=== PATIENT | male | born 1940 | race Caucasian/White ===

== ENCOUNTER 2020-11-18 17:12 | Inpatient (IN) ==
[2020-11-18] MEDS ORDERED: Naloxone 0.4 MG/ML INJ IVP PRN ×2 (23:05→23:13)
[2020-11-18] MEDS ORDERED: Acetaminophen 325 MG TABLET PO PRN (23:13)
[2020-11-19] MEDS: Ondansetron ODT 4 MG TAB.RAPDIS SL PRN ×2 (01:12→06:52)
[2020-11-19] MEDS ORDERED: *HR* FentaNYL PATCH 25 MCG PATCH TD SCH (01:30)
[2020-11-19] MEDS ORDERED: D5% in Water 1,000 ML IVC PRN (01:32)
[2020-11-19] MEDS ORDERED: Dextrose Gel 15 GM/37.5 ML TUBE PO PRN ×2 (01:32)
[2020-11-19] MEDS ORDERED: Ipratropium/Albuterol Neb 3 ML IH PRN (01:32)
[2020-11-19] MEDS ORDERED: *HR* Dextrose 50 % in Water (Vial) 50 ML VIAL IVP PRN (01:32)
[2020-11-19] MEDS: *HR* OxyCODONE Immed Rel 15 MG TABLET PO PRN ×4 (01:53→21:30)
[2020-11-19] MEDS: Ondansetron ODT 4 MG TAB.RAPDIS PO SCH ×5 (01:54→21:30)
[2020-11-19] MEDS: Gabapentin 400 MG CAPSULE PO SCH ×4 (02:18→21:30)
[2020-11-19 02:24] LABS: Basophils % 0.3 %; Eosinophils % 0.3 %; Hematocrit 33.9 % (37.5-50.1); Hemoglobin 10.6 g/dL (12.9-16.9); Immature Granulocytes % 0.7 % (0-4); Lymphocytes # 1.4 K/mcL (0.6-4.6); Lymphocytes % 12.6 %; Mean Corpuscular HGB Conc 31.3 g/dL (31.6-35.5); Mean Corpuscular Hemoglobin 27.7 pg (28.0-33.3); Mean Corpuscular Volume 88.7 fL (83.0-100.0); Mean Platelet Volume 9.5 fL (9.4-12.4); Monocytes # 1.4 K/mcL (0.0-1.3); Monocytes % 12.2 %; Neutrophils # 8.2 K/mcL (1.6-8.9); Platelet Count 172 K/mcL (140-400); Red Blood Count 3.82 M/mcL (4.19-5.50); Red Cell Distribution Width 15.4 % (11.5-14.5); Segmented Neutrophils % 73.9 %
[2020-11-19 02:33] LABS: Prothrombin Time 22.3 Seconds (9.4-12.1)
[2020-11-19 03:22] LABS: Bilirubin,Urine Negative (Negative); Blood,Urine Large (Negative); Clarity,Urine Turbid (Clear); Color,Urine Light-Orange (Yellow); Glucose,Urine (UA) Normal (Normal); Hyaline Casts,Urine Few per lpf (None Seen); Ketones,Urine Trace mg/dL (Negative); Leukocyte Esterase,Urine Negative (Negative); Mucus,Urine Few per lpf (None-Few); Nitrite,Urine Negative (Negative); Protein,Urine >=300 mg/dL (Neg-Trace); RBC,Urine TNTC per hpf (0-3); Specific Gravity,Urine 1.024 (1.010-1.025); Squamous Epithelial Cell,Urine Few per hpf (None-Few); Urobilinogen,Urine Normal (Normal); WBC,Urine 15-30 per hpf (0-3)
[2020-11-19 04:29] LABS: Estimated Average Glucose 131 mg/dl; Hemoglobin A1C 6.2 %
[2020-11-19] MEDS ORDERED: *HR* Heparin 5,000 UNIT/ML VIAL IVP ONE (08:06)
[2020-11-19] MEDS ORDERED: *HR* Heparin 5,000 UNIT/ML VIAL IVP PRN ×2 (08:06)
[2020-11-19] MEDS ORDERED: Heparin 25,000UNIT/250ML 1/2NS 25,000 UNIT/250 ML IV.SOLN IVC SCH ×2 (08:15→15:45)
[2020-11-19 08:41] LABS: Hematocrit 35.5 % (37.5-50.1); Hemoglobin 11.1 g/dL (12.9-16.9); Heparin anti-factor XA UFH 0.16 IU/mL (0.30-0.70); INR 1.6; Mean Corpuscular HGB Conc 31.3 g/dL (31.6-35.5); Mean Corpuscular Hemoglobin 28.1 pg (28.0-33.3); Mean Corpuscular Volume 89.9 fL (83.0-100.0); Mean Platelet Volume 9.4 fL (9.4-12.4); Platelet Count 173 K/mcL (140-400); Prothrombin Time 18.2 Seconds (9.4-12.1); Red Blood Count 3.95 M/mcL (4.19-5.50); Red Cell Distribution Width 15.3 % (11.5-14.5)
[2020-11-19] MEDS: Pantoprazole 40 MG VIAL IVP SCH (08:45)
[2020-11-19] MEDS: Loratadine 10 MG TABLET PO SCH (08:46)
[2020-11-19] MEDS: Insulin LISPRO 300 UNITS/3 ML VIAL SUBQ SCH ×3 (08:48→17:40)
[2020-11-19] MEDS ORDERED: Metoprolol XL (24 HR) Succ 25 MG TAB.ER.24H PO SCH (09:00)
[2020-11-19] MEDS: levoFLOXacin 750 MG TABLET PO SCH (09:03)
[2020-11-19] MEDS ORDERED: Furosemide 40 MG/4 ML VIAL IVP ONE (11:37)
[2020-11-19] MEDS: Aspirin Enteric Coated 81 MG Tablet PO SCH (11:54)
[2020-11-19] MEDS ORDERED: Perflutren Lipid Microsphere 1.3 ML in 0.9 % Sodium Chloride 8.7 ML IVP PRN (12:38)
[2020-11-19] MEDS ORDERED: Gabapentin 400 MG CAPSULE PO SCH (15:00)
[2020-11-19] MEDS ORDERED: Ringers Solution, Lactated 1,000 ML IVC ONE (15:36)
[2020-11-19] MEDS ORDERED: Furosemide 20 MG/2 ML VIAL IVP ONE (15:39)
[2020-11-19] MEDS ORDERED: Ringers Solution, Lactated 1,000 ML ONE (15:44)
[2020-11-19] MEDS ORDERED: 0.9 % Sodium Chloride 1,000 ML IVC ONE (16:13)
[2020-11-19] MEDS ORDERED: 0.9 % Sodium Chloride 1,000 ML ONE (16:14)
[2020-11-19 16:28] LABS: Hematocrit 34.9 % (37.5-50.1); Hemoglobin 11.2 g/dL (12.9-16.9)
[2020-11-19] MEDS: Primidone 50 MG TABLET PO SCH (21:30)
[2020-11-19] MEDS: Metoprolol XL (24 HR) Succ 25 MG TAB.ER.24H PO SCH (21:30)
[2020-11-20] MEDS: *HR* OxyCODONE Immed Rel 15 MG TABLET PO PRN ×4 (01:55→21:16)
[2020-11-20 05:50] LABS: BUN/Creatinine Ratio 25 (6-26); Blood Urea Nitrogen 31 mg/dL (8-23); Calcium 8.4 mg/dL (8.6-10.3); Carbon Dioxide 25 mEq/L (23-29); Chloride 106 mEq/L (98-107); Glucose 127 mg/dL (70-105); Osmolality,Calculated 300 (280-300); Sodium 141 mEq/L (136-145); eGFR For African Americans > 60 (> 60); eGFR For Non-African Americans 56 (> 60)
[2020-11-20] MEDS: lisinopriL 5 MG TABLET PO SCH (08:47)
[2020-11-20] MEDS: Primidone 50 MG TABLET PO SCH ×2 (08:48→21:17)
[2020-11-20] MEDS: Famotidine 20 MG TABLET PO SCH (08:48)
[2020-11-20] MEDS: Aspirin Enteric Coated 81 MG Tablet PO SCH (08:48)
[2020-11-20] MEDS: Metoprolol XL (24 HR) Succ 25 MG TAB.ER.24H PO SCH ×2 (08:48→21:15)
[2020-11-20] MEDS: Ondansetron ODT 4 MG TAB.RAPDIS PO SCH ×4 (08:49→21:16)
[2020-11-20] MEDS: levoFLOXacin 750 MG TABLET PO SCH (08:49)
[2020-11-20] MEDS: Loratadine 10 MG TABLET PO SCH (08:49)
[2020-11-20] MEDS: Gabapentin 400 MG CAPSULE PO SCH ×3 (08:49→21:15)
[2020-11-20] MEDS: Pantoprazole 40 MG VIAL IVP SCH (08:54)
[2020-11-20] MEDS: Insulin LISPRO 300 UNITS/3 ML VIAL SUBQ SCH ×3 (08:58→16:50)
[2020-11-20] MEDS ORDERED: ISOVUE-370 200 ML INFUS..BTL ONE ×2 (09:30→10:37)
[2020-11-20] MEDS ORDERED: 0.9 % Sodium Chloride 2,000 ML ONE (09:30)
[2020-11-20] MEDS ORDERED: Heparin 1,000 UNITS/500 mL 500 ML ONE (09:30)
[2020-11-20] MEDS ORDERED: Nitroglycerin 1,000 MCG/10 ML VIAL IV ONE (09:30)
[2020-11-20] MEDS ORDERED: *HR* Heparin 10,000 UNIT/10 ML VIAL ONE (09:30)
[2020-11-20] MEDS ORDERED: *HR* Midazolam HCl 2 MG/2 ML VIAL ONE (09:40)
[2020-11-20] MEDS ORDERED: *HR* FentaNYL (PF) 100 MCG/2 ML VIAL ONE (09:40)
[2020-11-20 09:42] LABS: Basophils % 0.4 %; Eosinophils # 0.2 K/mcL (0.0-0.6); Hematocrit 33.8 % (37.5-50.1); Hemoglobin 10.3 g/dL (12.9-16.9); Immature Granulocytes % 0.7 % (0-4); Lymphocytes # 1.8 K/mcL (0.6-4.6); Lymphocytes % 18.3 %; Mean Corpuscular HGB Conc 30.5 g/dL (31.6-35.5); Mean Corpuscular Hemoglobin 27.8 pg (28.0-33.3); Mean Corpuscular Volume 91.1 fL (83.0-100.0); Mean Platelet Volume 9.5 fL (9.4-12.4); Monocytes # 1.3 K/mcL (0.0-1.3); Monocytes % 13.1 %; Neutrophils # 6.5 K/mcL (1.6-8.9); Platelet Count 161 K/mcL (140-400); Red Blood Count 3.71 M/mcL (4.19-5.50); Red Cell Distribution Width 15.5 % (11.5-14.5); Segmented Neutrophils % 65.5 %; White Blood Count 9.9 K/mcL (4.3-11.1)
[2020-11-20] MEDS ORDERED: Tirofiban 12.5 MG/250ML 12.5 MG/250 ML BAG ONE (10:27)
[2020-11-20] MEDS ORDERED: Furosemide 40 MG/4 ML VIAL IVP ONE (11:00)
[2020-11-20] MEDS ORDERED: Tirofiban 12.5 MG/250ML 12.5 MG/250 ML BAG IVC SCH (11:00)
[2020-11-20 12:34] LABS: Alanine Aminotransferase 8 Units/L (7-52); Albumin 3.4 g/dL (3.5-5.7); Albumin/Globulin Ratio 1.5 (1.1-2.2); Alkaline Phosphatase 58 Units/L (34-104); Aspartate Amino Transferase 11 Units/L (13-39); Bilirubin,Direct 0.1 mg/dL (0.0-0.2); Bilirubin,Indirect 0.3 mg/dL (0.0-1.0); Bilirubin,Total 0.4 mg/dL (0.3-1.0); Chol/HDL Ratio 3.4 (0-4.9); Cholesterol 92 mg/dL (< 200); Globulin 2.2 g/dL (2.4-3.5); HDL Cholesterol 27 mg/dL (40-59); LDL Cholesterol,Calculated 45 mg/dL (< 100); Magnesium 1.5 mg/dL (1.6-2.6); Phosphorous 3.2 mg/dL (2.7-4.5); Total Protein 5.6 g/dL (6.4-8.9); Triglycerides 100 mg/dL (< 150)
[2020-11-20] MEDS: Spironolactone 12.5 MG TABLET PO SCH (16:49)
[2020-11-20] MEDS ORDERED: *HR* Rivaroxaban 10 MG TABLET PO SCH (17:00)
[2020-11-21] MEDS: *HR* OxyCODONE Immed Rel 15 MG TABLET PO PRN ×3 (02:09→12:29)
[2020-11-21 05:09] LABS: Basophils % 0.4 %; Eosinophils # 0.3 K/mcL (0.0-0.6); Eosinophils % 2.4 %; Hematocrit 32.7 % (37.5-50.1); Hemoglobin 10.3 g/dL (12.9-16.9); Immature Granulocytes % 0.7 % (0-4); Lymphocytes # 1.5 K/mcL (0.6-4.6); Mean Corpuscular HGB Conc 31.5 g/dL (31.6-35.5); Mean Corpuscular Hemoglobin 28.5 pg (28.0-33.3); Mean Corpuscular Volume 90.3 fL (83.0-100.0); Mean Platelet Volume 9.5 fL (9.4-12.4); Monocytes # 1.5 K/mcL (0.0-1.3); Monocytes % 14.3 %; Neutrophils # 6.9 K/mcL (1.6-8.9); Platelet Count 187 K/mcL (140-400); Red Blood Count 3.62 M/mcL (4.19-5.50); Red Cell Distribution Width 15.7 % (11.5-14.5); Segmented Neutrophils % 67.2 %; White Blood Count 10.2 K/mcL (4.3-11.1)
[2020-11-21 05:29] LABS: Calcium 8.4 mg/dL (8.6-10.3); Potassium 3.9 mEq/L (3.5-5.1)
[2020-11-21] MEDS: Insulin LISPRO 300 UNITS/3 ML VIAL SUBQ SCH ×2 (08:07→12:29)
[2020-11-21] MEDS: levoFLOXacin 750 MG TABLET PO SCH (08:08)
[2020-11-21] MEDS: Pantoprazole 40 MG VIAL IVP SCH (08:08)
[2020-11-21] MEDS: Famotidine 20 MG TABLET PO SCH (08:08)
[2020-11-21] MEDS: lisinopriL 5 MG TABLET PO SCH (08:09)
[2020-11-21] MEDS: Spironolactone 12.5 MG TABLET PO SCH (08:09)
[2020-11-21] MEDS: Primidone 50 MG TABLET PO SCH (08:09)
[2020-11-21] MEDS: Loratadine 10 MG TABLET PO SCH (08:09)
[2020-11-21] MEDS: Aspirin Enteric Coated 81 MG Tablet PO SCH (08:11)
[2020-11-21] MEDS: Gabapentin 400 MG CAPSULE PO SCH (08:11)
[2020-11-21] MEDS: Metoprolol XL (24 HR) Succ 25 MG TAB.ER.24H PO SCH (08:12)
[2020-11-21] MEDS: Ondansetron ODT 4 MG TAB.RAPDIS PO SCH ×2 (08:45→12:29)
[2020-11-21 10:50] VITALS: BP 124/68
[2020-11-21] MEDS ORDERED: Furosemide 40 MG TABLET PO PRN (10:54)
[2020-11-21 13:36] LABS: Calcium 8.3 mg/dL (8.6-10.3); Potassium 3.9 mEq/L (3.5-5.1)
== END 2020-11-21 14:21 | disposition home or self-care (01) | DRG 246 ==
LOC: 3BNU → SUATTDRO 22:26 → CDU 22:42 → SUATTDRO 11-19 13:06
PROVIDERS: ADMIT Internal Medicine; ATTEND Internal Medicine

== ENCOUNTER 2021-05-30 13:29 | Observation (INO) ==
[2021-05-30] MEDS ORDERED: methylPREDNISolone 125 MG/2 ML VIAL IVP ONE (14:21)
[2021-05-30] MEDS ORDERED: Ipratropium/Albuterol Neb 3 ML IH ONE (14:22)
[2021-05-30 15:46] LABS: Basophils # 0.1 K/mcL (0.0-0.2); Basophils % 0.5 %; Eosinophils # 0.1 K/mcL (0.0-0.6); Eosinophils % 1.3 %; Hematocrit 38.1 % (37.5-50.1); Hemoglobin 11.6 g/dL (12.9-16.9); Immature Granulocytes % 0.4 % (0-4); Lymphocytes # 2.5 K/mcL (0.6-4.6); Lymphocytes % 24.6 %; Mean Corpuscular HGB Conc 30.4 g/dL (31.6-35.5); Mean Corpuscular Hemoglobin 27.6 pg (28.0-33.3); Mean Corpuscular Volume 90.5 fL (83.0-100.0); Monocytes # 0.9 K/mcL (0.0-1.3); Monocytes % 8.6 %; Neutrophils # 6.6 K/mcL (1.6-8.9); Platelet Count 175 K/mcL (140-400); Red Blood Count 4.21 M/mcL (4.19-5.50); Red Cell Distribution Width 16.6 % (11.5-14.5); Segmented Neutrophils % 64.6 %; White Blood Count 10.2 K/mcL (4.3-11.1)
[2021-05-30 16:10] LABS: Alanine Aminotransferase 33 Units/L (7-52); Albumin 3.7 g/dL (3.5-5.7); Albumin/Globulin Ratio 1.5 (1.1-2.2); Alkaline Phosphatase 84 Units/L (34-104); Aspartate Amino Transferase 29 Units/L (13-39); BUN/Creatinine Ratio 16 (6-26); Bilirubin,Direct 0.1 mg/dL (0.0-0.2); Bilirubin,Indirect 0.2 mg/dL (0.0-1.0); Bilirubin,Total 0.3 mg/dL (0.3-1.0); Blood Urea Nitrogen 24 mg/dL (8-23); Calcium 8.8 mg/dL (8.6-10.3); Carbon Dioxide 26 mEq/L (23-29); Chloride 110 mEq/L (98-107); Creatine Kinase 68 Units/L (30-223); Globulin 2.4 g/dL (2.4-3.5); Glucose 109 mg/dL (70-105); Osmolality,Calculated 299 (280-300); Potassium 5.3 mEq/L (3.5-5.1); Sodium 142 mEq/L (136-145); Total Protein 6.1 g/dL (6.4-8.9); Troponin I < 0.03 ng/mL (< 0.04); eGFR For African Americans 55 (> 60); eGFR For Non-African Americans 46 (> 60)
[2021-05-30 16:14] LABS: Bilirubin,Urine Negative (Negative); Blood,Urine Trace (Negative); Clarity,Urine Clear (Clear); Color,Urine Yellow (Yellow); Glucose,Urine (UA) >=1000 mg/dL (Normal); Hyaline Casts,Urine Few per lpf (None Seen); Ketones,Urine Negative (Negative); Leukocyte Esterase,Urine Small (Negative); Mucus,Urine Few per lpf (None-Few); Nitrite,Urine Negative (Negative); PH,Urine 5.5 pH Units (5.0-8.0); Protein,Urine 30 mg/dL (Neg-Trace); RBC,Urine 0-3 per hpf (0-3); Specific Gravity,Urine > 1.030 (1.010-1.025); Squamous Epithelial Cell,Urine Few per hpf (None-Few); Urobilinogen,Urine Normal (Normal)
[2021-05-30] MEDS: Nitroglycerin 0.4 MG TAB.SUBL SL SCH ×2 (19:12→21:13)
[2021-05-30] MEDS ORDERED: *HR* FentaNYL (PF) 100 MCG/2 ML VIAL IVP ONE (19:31)
[2021-05-30] MEDS ORDERED: Calcium Gluconate 1gm/50mL 1 GM/50 ML BAG IVPB PRN (20:01)
[2021-05-30] MEDS ORDERED: Acetaminophen 325 MG TABLET PO PRN (20:32)
[2021-05-30] MEDS ORDERED: Dextrose Gel 15 GM/37.5 ML TUBE PO PRN ×2 (20:32)
[2021-05-30] MEDS ORDERED: D5% in Water 1,000 ML IVC PRN (20:32)
[2021-05-30] MEDS ORDERED: *HR* Dextrose 50 % in Water (Vial) 50 ML VIAL IVP PRN (20:32)
[2021-05-30] MEDS ORDERED: Naloxone 0.4 MG/ML INJ IVP PRN (20:32)
[2021-05-30] MEDS ORDERED: Ondansetron 4 MG/2 ML VIAL IVP PRN (20:32)
[2021-05-31] MEDS: Pantoprazole 40 MG VIAL IVP SCH ×2 (00:50→08:17)
[2021-05-31 03:01] VITALS: O2SAT 97
[2021-05-31 05:03] LABS: Basophils % 0.2 %; Hematocrit 37.1 % (37.5-50.1); Hemoglobin 11.8 g/dL (12.9-16.9); Immature Granulocytes % 0.9 % (0-4); Lymphocytes # 1.1 K/mcL (0.6-4.6); Lymphocytes % 8.8 %; Mean Corpuscular HGB Conc 31.8 g/dL (31.6-35.5); Mean Corpuscular Hemoglobin 28.2 pg (28.0-33.3); Mean Corpuscular Volume 88.8 fL (83.0-100.0); Mean Platelet Volume 9.5 fL (9.4-12.4); Monocytes # 0.6 K/mcL (0.0-1.3); Monocytes % 4.9 %; Neutrophils # 10.5 K/mcL (1.6-8.9); Platelet Count 197 K/mcL (140-400); Red Blood Count 4.18 M/mcL (4.19-5.50); Red Cell Distribution Width 16.4 % (11.5-14.5); Segmented Neutrophils % 85.2 %; White Blood Count 12.3 K/mcL (4.3-11.1)
[2021-05-31 05:12] LABS: INR 1.2; Prothrombin Time 13.8 Seconds (9.4-12.1)
[2021-05-31 05:15] LABS: Activated Partial Thrombo Time 27.2 Seconds (26.0-36.0)
[2021-05-31 05:51] LABS: BUN/Creatinine Ratio 21 (6-26); Blood Urea Nitrogen 27 mg/dL (8-23); Carbon Dioxide 23 mEq/L (23-29); Chloride 108 mEq/L (98-107); Chol/HDL Ratio 3.1 (0-4.9); Cholesterol 103 mg/dL (< 200); Glucose 141 mg/dL (70-105); HDL Cholesterol 33 mg/dL (40-59); LDL Cholesterol,Calculated 52 mg/dL (< 100); Osmolality,Calculated 299 (280-300); Potassium 5.6 mEq/L (3.5-5.1); Sodium 141 mEq/L (136-145); Thyroid Stimulating Hormone 0.615 mcIU/mL (0.340-5.600); Triglycerides 91 mg/dL (< 150); Troponin I < 0.03 ng/mL (< 0.04); eGFR For African Americans > 60 (> 60); eGFR For Non-African Americans 53 (> 60)
[2021-05-31 06:46] VITALS: TEMP 97.5
[2021-05-31] MEDS: Insulin LISPRO 300 UNITS/3 ML VIAL SUBQ SCH ×2 (08:15→12:11)
[2021-05-31] MEDS ORDERED: Ipratropium/Albuterol Neb 3 ML IH PRN (08:40)
[2021-05-31] MEDS ORDERED: *HR* Dextrose 50 % in Water (Vial) 50 ML VIAL IVP ONE (08:45)
[2021-05-31] MEDS ORDERED: Insulin Human Regular 10 UNIT in 0.9 % Sodium Chloride 10 ML IV ONE (08:45)
[2021-05-31] MEDS ORDERED: Cyanocobalamin (B-12) 1,000 MCG/ML VIAL IM SCH (08:45)
[2021-05-31] MEDS ORDERED: *HR* FentaNYL PATCH 25 MCG PATCH TD SCH (09:00)
[2021-05-31] MEDS ORDERED: Metoprolol XL (24 HR) Succ 25 MG TAB.ER.24H PO SCH (09:00)
[2021-05-31] MEDS ORDERED: NON-FORMULARY MEDICATION 1 EACH EACH (Budesonide/Glycopyr/Formoterol [Breztri Aerosphere I TP SCH (09:00)
[2021-05-31] MEDS ORDERED: lisinopriL 5 MG TABLET PO SCH (09:00)
[2021-05-31] MEDS ORDERED: Cyanocobalamin (B-12) 1,000 MCG TABLET PO SCH (09:15)
[2021-05-31 11:24] VITALS: BP 159/81; PULSE 82
[2021-05-31] MEDS ORDERED: *HR* Rivaroxaban 10 MG TABLET PO SCH (17:00)
== END 2021-05-31 16:25 | disposition home or self-care (01) ==
LOC: EMEROOARM 13:29 → 3BNU 13:29
PROVIDERS: ADMIT Student in an Organized Health Care Education/Training Program; ATTEND Student in an Organized Health Care Education/Training Program